=== PATIENT | female | born 1945 | race Caucasian/White ===

== ENCOUNTER → 2016-11-08 | Outpatient (REF) | payer MEDICARE, OTHER ==
[~2016-11-08] MED LIST: CITA40TA4 PO; FERR325T3 PO; FLON1SPR; GLUC1CAP9 PO; LOSA50TA20 PO; NEXI40CA PO; PRAV20TA2 PO; SYNT112T2 PO; [UNRECOGNIZED DRUG - CODE] PO
[2016-11-08 13:56] LABS: PERCENT SATURATION 12.4 % (13.2-37.4)
== END ==
LOC: M LAB REF 13:05
PROVIDERS: ATTEND Internal Medicine Medical Oncology
DX: D50.9 Iron deficiency anemia, unspecified (principal)

== ENCOUNTER → 2017-01-04 | Outpatient (CLI) | payer MEDICARE, OTHER ==
[~2017-01-04] VITALS: Ht 160 cm; Wt 80.7 kg
[~2017-01-04] MED LIST changes: +NS 1,000 ML IV SCH; +PROPOFOL 200 MG/20 ML VIAL As Ordered ONE
--- NOTE | 2017-01-04 11:17 | ROOR ---
Patient Name: Elle Awan Procedure Date: 01/04/2017 11:01 AM Date of : 1945 Age: 71 Room: [facility] Gender: Female Note Status: Finalized Procedure: Upper GI endoscopy Indications: Dysphagia, Heartburn Providers: Nirav Villasenor MD Referring MD: EVANGELINA SAAB MD Requesting Provider: Medicines: Monitored Anesthesia Care Complications: No immediate complications. Procedure: Pre-Anesthesia Assessment: - The heart rate, respiratory rate, oxygen saturations, blood pressure, adequacy of pulmonary ventilation, and response to care were monitored throughout the procedure. The Endoscope was introduced through the mouth, and advanced to the second part of duodenum. The upper GI endoscopy was accomplished without difficulty. The patient tolerated the procedure well. Findings: The Z-line was regular and was found 40 cm from the incisors. A medium-sized hiatal hernia was present. No other significant abnormalities were identified in a careful examination of the stomach. The exam of the duodenum was otherwise normal. Impression: - Z-line regular, 40 cm from the incisors. - Medium-sized hiatal hernia. - No specimens collected. - The examination was otherwise normal. Recommendation: - Patient has a contact number available for emergencies. The signs and symptoms of potential delayed complications were discussed with the patient. Return to normal activities tomorrow. Written discharge instructions were provided to the patient. - High fiber diet. - Discharge patient to home. - Continue present medications. - Follow an antireflux regimen. - Return to referring physician. - The findings and recommendations were discussed with the patient's family. Nirav Villasenor MD Nirav Villasenor MD 01/04/2017 11:17:05 AM This report has been signed electronically. Number of Addenda: 0 Note Initiated On: 01/04/2017 11:01 AM Estimated Blood Loss: Estimated blood loss: none.
[2017-01-04 11:40] VITALS: BP 152/75
== END | disposition home or self-care (01) ==
LOC: M OPP 10:01
PROVIDERS: ATTEND Internal Medicine Gastroenterology
DX: R13.10 Dysphagia, unspecified (principal); R12 Heartburn; K44.9 Diaphragmatic hernia without obstruction or gangrene; R63.4 Abnormal weight loss; I10 Essential (primary) hypertension; E78.00 Pure hypercholesterolemia, unspecified; E03.9 Hypothyroidism, unspecified; D50.9 Iron deficiency anemia, unspecified; M19.90 Unspecified osteoarthritis, unspecified site; G43.909 Migraine, unspecified, not intractable, without status migrainosus; K74.60 Unspecified cirrhosis of liver; Z78.0 Asymptomatic menopausal state; R06.02 Shortness of breath; K31.819 Angiodysplasia of stomach and duodenum without bleeding; Z88.2 Allergy status to sulfonamides; Z88.8 Allergy status to other drugs, medicaments and biological substances; Z79.899 Other long term (current) drug therapy; F17.210 Nicotine dependence, cigarettes, uncomplicated

== ENCOUNTER → 2017-01-11 | Outpatient (REF) | payer MEDICARE, OTHER ==
[~2017-01-11] MED LIST changes: -NS 1,000 ML IV SCH; -PROPOFOL 200 MG/20 ML VIAL As Ordered ONE
[2017-01-11 13:52] LABS: CARCINOEMBRYONIC ANTIGEN 1.3 NG/ML (<2.5)
== END ==
LOC: M LAB REF 13:09
PROVIDERS: ATTEND Internal Medicine Medical Oncology
DX: D50.9 Iron deficiency anemia, unspecified (principal)

== ENCOUNTER → 2017-01-18 | Outpatient (CLI) | payer MEDICARE, OTHER ==
[~2017-01-18] MED LIST changes: +GASTROGRAFIN SOLUTION 30ML (Q9963) As Ordered ONE; +ISOVUE-370 76% 100ML VIAL (Q9967) As Ordered ONE
--- NOTE | 2017-01-18 17:16 | REP ---
CT study of the abdomen and pelvis without and with IV contrast: With oral contrast. History: Weight loss. Iron deficiency anemia. Comparison CT study January 23, 2016. CT contrast dose: 100 mL of Isovue [address] findings: Preliminary digital customer technical services manager radiograph demonstrates clips in the right upper quadrant. Bowel gas pattern is unremarkable. The lung bases show mild linear fibrosis in the right middle lobe, but are otherwise clear. The liver and spleen are normal in size, homogeneous in texture. No focal liver lesion is seen. No adrenal lesion is observed on either side. Pancreas is unremarkable. Small and large intestinal bowel loops are normal in the abdomen and pelvis. The kidneys enhance symmetrically and are morphologically intact on pre and postcontrast images. No abdominal wall defect is observed. There are degenerative changes in the lumbar spine. No uterine abnormality is seen. Urinary bladder is intact. No bony destructive lesion or abdominal wall defect is seen. There is a small sliding-type hiatal hernia again noted. Impression: Small sliding hiatal hernia, prior cholecystectomy. No acute intra-abdominal or pelvic abnormality. Signed by Shon Treadwell MD 01/18/2017 06:55 P
--- NOTE | 2017-01-18 17:20 | REP ---
CT study of the chest with IV contrast: History: Iron deficiency anemia. Weight loss. CT contrast dose: 100 ml of Isovue 370. Comparison study: April 06, 2013. CT findings: There is no evidence of extrathoracic mass or adenopathy. A small sliding hiatal hernia is seen and there is evidence of reflux with oral barium and air filling and mildly dilating the entire thoracic esophagus. This is similar to prior study. No esophageal mass or mural thickening is seen. Reflux esophagitis cannot be excluded. There is no evidence of hilar or mediastinal mass or adenopathy. No evidence of pulmonary embolism or thoracic aortic dissection or aneurysm. No bony destructive lesion is seen. There are some degenerative changes in the thoracic spine. There is a stable noncalcified 3 mm nodule in the right lower lobe on image 52 of 98, series 304 of today's examination. No other pulmonary nodule or mass lesion is appreciated. Impression: Small hiatal hernia and evidence of significant gastroesophageal reflux filling the esophagus as on the study done in 2012. Reflux esophagitis cannot be excluded. Stable benign nodule right lower lobe. Otherwise no acute disease. Signed by Shon Treadwell MD 01/18/2017 06:55 P
== END ==
LOC: M RAD 14:09
PROVIDERS: ATTEND Internal Medicine Medical Oncology
DX: D50.9 Iron deficiency anemia, unspecified (principal); R63.4 Abnormal weight loss; K44.9 Diaphragmatic hernia without obstruction or gangrene; K21.9 Gastro-esophageal reflux disease without esophagitis; R91.1 Solitary pulmonary nodule
CPT/HCPCS: 71260; 74178; Q9963; Q9967

== ENCOUNTER → 2017-02-08 | Outpatient (CLI) | payer MEDICARE, OTHER ==
[~2017-02-08] MED LIST changes: -GASTROGRAFIN SOLUTION 30ML (Q9963) As Ordered ONE; -ISOVUE-370 76% 100ML VIAL (Q9967) As Ordered ONE
[2017-02-08 13:53] LABS: BASO % 0.8 % (0.0-1.0); EOS # 0.2 K/mm3 (0.0-0.50); EOS % 4.2 % (0.0-3.0); LARGE UNSTAINED CELL # 0.2 K/mm3 (0.0-0.4); LARGE UNSTAINED CELL % 3.8 % (0.0-4.0); LYMPH # 1.3 K/mm3 (1.5-4.5); LYMPH % 23.2 % (24.0-44.0); MEAN CORPUSCULAR HEMOGLOBIN 27.6 pg (27.0-33.0); MEAN CORPUSCULAR HGB CONC 32.6 g/dl (32.0-36.5); MEAN CORPUSCULAR VOLUME 84.7 fl (80.0-96.0); MONO # 0.5 K/mm3 (0.0-0.8); MONO % 8.5 % (0.0-5.0); NEUTROPHILS # 3.4 K/mm3 (1.8-7.7); NEUTROPHILS % 59.4 % (36.0-66.0); PLATELET COUNT, AUTOMATED 310 k/mm3 (150-450); RED CELL DISTRIBUTION WIDTH 14.8 % (11.5-14.5); WHITE BLOOD COUNT 5.8 K/mm3 (4.0-10.0)
[2017-02-08 14:02] LABS: ALBUMIN 3.8 GM/DL (3.2-5.2); ALBUMIN/GLOBULIN RATIO 1.31 (1.00-1.93); ALKALINE PHOSPHATASE 85 U/L (45-117); ALT/SGPT 19 U/L (12-78); ANION GAP 9 MEQ/L (8-16); AST/SGOT 17 U/L (15-37); BILIRUBIN,TOTAL 0.5 MG/DL (0.2-1.0); BLOOD UREA NITROGEN 14 MG/DL (7-18); CALCIUM LEVEL 9.3 MG/DL (8.8-10.2); CARBON DIOXIDE LEVEL 25 MEQ/L (21-32); CHLORIDE LEVEL 105 MEQ/L (98-107); CHOLESTEROL LEVEL 150 MG/DL (<200); CREATININE FOR GFR 0.73 MG/DL (0.55-1.02); FREE T4 1.22 NG/DL (0.76-1.46); GLOMERULAR FILTRATION RATE > 60.0 (>39); GLUCOSE, FASTING 94 MG/DL (83-110); POTASSIUM SERUM 4.5 MEQ/L (3.5-5.1); SODIUM LEVEL 139 MEQ/L (136-145); TOTAL PROTEIN 6.7 GM/DL (6.4-8.2); TRIGLYCERIDES LEVEL 95 MG/DL (<150)
== END ==
LOC: M LAB 12:34
PROVIDERS: ATTEND Emergency Medicine
DX: K31.819 Angiodysplasia of stomach and duodenum without bleeding (principal); I10 Essential (primary) hypertension; E78.2 Mixed hyperlipidemia; E55.9 Vitamin D deficiency, unspecified; R73.01 Impaired fasting glucose; E03.9 Hypothyroidism, unspecified

== ENCOUNTER → 2017-03-11 | Outpatient (REF) | payer MEDICARE, OTHER ==
[2017-03-11 19:56] LABS: PERCENT SATURATION 8.6 % (13.2-37.4)
== END ==
LOC: M LAB REF 13:40
PROVIDERS: ATTEND Internal Medicine Medical Oncology
DX: D50.9 Iron deficiency anemia, unspecified (principal)

== ENCOUNTER → 2017-03-12 | Outpatient (CLI) | payer MEDICARE, OTHER ==
--- NOTE | 2017-03-12 12:36 | REPMRS ---
Patient History The patient states she had a clinical breast exam in January 2017. Patient is postmenopausal and had first child at age 31. Family history of endometrial cancer in mother at age 62. Digital Mammo Screening Bilat: March 12, 2017 - Exam #: [id number] Bilateral CC and MLO view(s) were taken. Technologist: Torie Cruz Technologist Prior study comparison: February 22, 2016, bilateral digital mammo screening bilat performed at [facility]. FINDINGS: There are scattered fibroglandular densities. There has been no change in the appearance of the mammogram from the prior studies. There is a mild amount of residual fibroglandular tissue which is fairly symmetric. There is no interval development of dominant mass, architectural distortion, or clustered microcalcification suggestive of malignancy. ASSESSMENT: BI-RADS/ACR category 1 mammogram. Negative. Recommendation Routine screening mammogram in 1 year (for women over age 40). This mammogram was interpreted with the aid of an FDA-approved computer-aided dectection system. Electronically Signed By: Efrain Morrison MD 03/12/17 [id number]
== END ==
LOC: M RAD 11:06
PROVIDERS: ATTEND Emergency Medicine
DX: Z12.31 Encounter for screening mammogram for malignant neoplasm of breast (principal)

== ENCOUNTER → 2017-06-11 | Outpatient (REF) | payer MEDICARE, OTHER ==
[2017-06-11 13:48] LABS: PERCENT SATURATION 20.7 % (13.2-45.0)
== END ==
LOC: M LAB REF 09:43
PROVIDERS: ATTEND Internal Medicine Medical Oncology
DX: D50.9 Iron deficiency anemia, unspecified (principal)

== ENCOUNTER → 2017-07-08 | Outpatient (CLI) | payer MEDICARE, OTHER ==
[2017-07-08 12:04] LABS: MEAN CORPUSCULAR HEMOGLOBIN 28.7 pg (27.0-33.0); MEAN CORPUSCULAR HGB CONC 32.6 g/dl (32.0-36.5); RED CELL DISTRIBUTION WIDTH 13.4 % (11.5-14.5); WHITE BLOOD COUNT 6.7 10^3/uL (4.0-10.0)
--- NOTE | 2017-07-08 12:10 | REP ---
DUPLEX CAROTID SONOGRAPHY: HISTORY: Followup stenosis. COMPARISON STUDY: November 27, 2016. This was read as showing 50-69% narrowing in the right ICA. FINDINGS: Antegrade flow is observed in both vertebral arteries. Right is larger than the left. RIGHT CAROTID: The right common carotid artery shows mild soft plaquing. There is mixed plaquing in the bulb and proximal ICA on two-dimensional scanning moderate degree on the right side. Stenotic flow velocities are observed in systole and diastole in the right ICA. These have increased since the prior study. VELOCITY CHART RIGHT CAROTID: Right CCA PSV 61 cm/s Right ICA PSV 333 EDV 107 Right ECA 115 Right ICA/CCA ratio, elevated 5.5 IMPRESSION: 80-99% category narrowing in the right ICA by Doppler velocity criteria. Velocities have increased since the prior study. LEFT CAROTID: The left common carotid artery shows mild soft plaquing. There is mixed plaquing in the bulb and proximal ICA on two-dimensional scanning of the left side. Color flow and spectral Doppler interrogation are unremarkable on the left. VELOCITY CHART LEFT CAROTID: Left CCA PSV 85 cm/s Left ICA PSV 86 EDV 26 Left ECA PSV 96 Left ICA/CCA ratio, normal 1.0 IMPRESSION: 16-49% category narrowing in the left ICA by Doppler velocity criteria. Doppler velocities have not increased since prior study. Signed by Shon Treadwell MD 07/08/2017 01:20 P
[2017-07-08 12:34] LABS: ALBUMIN 3.7 GM/DL (3.2-5.2); ALBUMIN/GLOBULIN RATIO 1.32 (1.00-1.93); ALKALINE PHOSPHATASE 98 U/L (45-117); ALT/SGPT 13 U/L (12-78); ANION GAP 7 MEQ/L (8-16); AST/SGOT 14 U/L (15-37); BILIRUBIN,TOTAL 0.4 MG/DL (0.2-1.0); BLOOD UREA NITROGEN 10 MG/DL (7-18); CALCIUM LEVEL 9.2 MG/DL (8.8-10.2); CARBON DIOXIDE LEVEL 26 MEQ/L (21-32); CHLORIDE LEVEL 104 MEQ/L (98-107); CREATININE FOR GFR 0.71 MG/DL (0.55-1.02); GLOMERULAR FILTRATION RATE > 60.0 (>39); GLUCOSE, FASTING 95 MG/DL (83-110); POTASSIUM SERUM 4.3 MEQ/L (3.5-5.1); SODIUM LEVEL 137 MEQ/L (136-145); TOTAL PROTEIN 6.5 GM/DL (6.4-8.2)
[2017-07-08 14:04] LABS: BANDS 1 % (< 11); BASOPHILS 2 % (0-4); EOSINOPHILS 2 % (0-5)
[2017-07-08 14:05] LABS: ANISOCYTOSIS 1+
== END ==
LOC: M RAD 09:28 → M LAB 09:28
PROVIDERS: ATTEND Surgery Vascular Surgery
DX: I65.23 Occlusion and stenosis of bilateral carotid arteries (principal)

== ENCOUNTER → 2017-07-10 | Outpatient (CLI) | payer MEDICARE, OTHER ==
[~2017-07-10] MED LIST changes: +ISOVUE-370 76% 100ML VIAL (Q9967) As Ordered ONE
--- NOTE | 2017-07-10 09:46 | REP ---
CT ANGIO HEAD: HISTORY: Stenosis. CONTRAST: Isovue 370, 75 mL. There is no aneurysm or arteriovenous malformation. Calcified atherosclerotic plaque is present in the cavernous right internal carotid artery. There is no significant stenosis. Major intracranial vessels are patent. The right vertebral artery is dominant. IMPRESSION: 1. There is no aneurysm or arteriovenous malformation. 2. Atherosclerotic disease as described above Signed by Bishnu Green MD 07/10/2017 09:53 A
--- NOTE | 2017-07-10 09:56 | REP ---
CT ANGIO NECK: HISTORY: Stenosis. CONTRAST: Isovue 370, 75 mL. Calcified atherosclerotic plaques are present at the origins of the right external and internal carotid arteries. There is severe stenosis of 85% of the right internal carotid artery at its origin. There is no significant stenosis at the origin of the right external carotid artery. Calcified atherosclerotic plaques are present at the origins of the left external and internal carotid arteries. There is moderate stenosis of 55% of the left internal carotid artery at its origin. There is mild stenosis of 25% of the left external carotid artery at its origin. The vertebral arteries are patent. The right vertebral artery is dominant. A calcified atherosclerotic plaque is present at the origin of the left subclavian artery. There is no significant stenosis. The origins of the remaining vessels are normal in appearance. IMPRESSION: 1. Severe stenosis of 85% of the right internal carotid artery at its origin. 2. Moderate stenosis of 55% of the left internal carotid artery at its origin. Signed by Bishnu Green MD 07/10/2017 10:05 A
== END ==
LOC: M RAD 07:57
PROVIDERS: ATTEND Surgery Vascular Surgery
DX: I65.23 Occlusion and stenosis of bilateral carotid arteries (principal)
CPT/HCPCS: 70496; 70498; Q9967

== ENCOUNTER → 2017-09-03 | Outpatient (CLI) | payer MEDICARE, OTHER ==
[~2017-09-03] MED LIST changes: -ISOVUE-370 76% 100ML VIAL (Q9967) As Ordered ONE
[2017-09-03 12:26] LABS: BASO % 0.6 % (0.0-1.0); EOS # 0.2 10^3/uL (0.0-0.50); EOS % 3.5 % (0.0-3.0); IMMATURE GRANULOCYTE % 0.3 % (0-0); LYMPH # 1.1 10^3/uL (1.5-4.5); LYMPH % 16.8 % (24.0-44.0); MEAN CORPUSCULAR HGB CONC 31.5 g/dl (32.0-36.5); MEAN CORPUSCULAR VOLUME 82.5 fl (80.0-96.0); MONO # 0.8 10^3/uL (0.0-0.8); MONO % 12.4 % (0.0-5.0); NEUTROPHILS # 4.4 10^3/uL (1.8-7.7); NEUTROPHILS % 66.4 % (36.0-66.0); PLATELET COUNT, AUTOMATED 373 10^3/uL (150-450); RED CELL DISTRIBUTION WIDTH 13.8 % (11.5-14.5); WHITE BLOOD COUNT 6.6 10^3/uL (4.0-10.0)
[2017-09-03 13:03] LABS: ALBUMIN 3.8 GM/DL (3.2-5.2); ALBUMIN/GLOBULIN RATIO 1.31 (1.00-1.93); ALKALINE PHOSPHATASE 86 U/L (45-117); ALT/SGPT 13 U/L (12-78); ANION GAP 7 MEQ/L (8-16); AST/SGOT 12 U/L (7-37); BILIRUBIN,TOTAL 0.4 MG/DL (0.2-1.0); BLOOD UREA NITROGEN 12 MG/DL (7-18); CALCIUM LEVEL 8.8 MG/DL (8.8-10.2); CARBON DIOXIDE LEVEL 26 MEQ/L (21-32); CHLORIDE LEVEL 105 MEQ/L (98-107); CHOLESTEROL LEVEL 134 MG/DL (<200); GLOMERULAR FILTRATION RATE > 60.0 (>39); GLUCOSE, FASTING 96 MG/DL (83-110); POTASSIUM SERUM 4.6 MEQ/L (3.5-5.1); SODIUM LEVEL 138 MEQ/L (136-145); TOTAL PROTEIN 6.7 GM/DL (6.4-8.2); TRIGLYCERIDES LEVEL 99 MG/DL (<150)
== END ==
LOC: M LAB 11:45
PROVIDERS: ATTEND Emergency Medicine
DX: K31.819 Angiodysplasia of stomach and duodenum without bleeding (principal); I10 Essential (primary) hypertension; E78.2 Mixed hyperlipidemia; E55.9 Vitamin D deficiency, unspecified; R73.01 Impaired fasting glucose; E03.9 Hypothyroidism, unspecified

== ENCOUNTER → 2017-09-10 | Outpatient (REF) | payer MEDICARE, OTHER ==
[2017-09-10 14:28] LABS: PERCENT SATURATION 6.3 % (13.2-45.0)
== END ==
LOC: M LAB REF 13:43
PROVIDERS: ATTEND Internal Medicine Medical Oncology
DX: D50.9 Iron deficiency anemia, unspecified (principal)

== ENCOUNTER → 2017-10-22 | Outpatient (CLI) | payer MEDICARE, OTHER ==
[2017-10-22 13:58] LABS: MAGNESIUM LEVEL 2.5 MG/DL (1.8-2.4)
[2017-10-22 14:14] LABS: ERYTHROCYTE SEDIMENTATION RATE 12 mm/hr (0-30)
== END ==
LOC: M LAB 12:55
DX: R25.1 Tremor, unspecified (principal); R53.1 Weakness
CPT/HCPCS: 83735

== ENCOUNTER → 2017-12-09 | Outpatient (REF) | payer MEDICARE, OTHER ==
[2017-12-09 14:26] LABS: FERRITIN 16 NG/ML (8-252); IRON (FE) 41 UG/DL (50-170); PERCENT SATURATION 12.8 % (13.2-45.0); TOTAL IRON BINDING CAPACITY 321 UG/DL (250-450)
== END ==
LOC: M LAB REF 13:50
DX: D50.9 Iron deficiency anemia, unspecified (principal)
CPT/HCPCS: 83550

== ENCOUNTER 2018-01-13 10:09 | Day surgery (SDC) | payer MEDICARE, OTHER ==
[2018-01-13] MEDS: NS 1,000 ML IV (10:15)
[2018-01-13] MEDS ORDERED: LIDOCAINE 2% INJ 100 MG/5 ML SDV (FOR ANES.) As Ordered (11:54)
[2018-01-13] MEDS ORDERED: PROPOFOL 200 MG/20 ML VIAL As Ordered (11:54)
== END 2018-01-13 12:30 | disposition home or self-care (01) ==
LOC: M OPP 10:09
DX: K20.9 Esophagitis, unspecified (principal); K44.9 Diaphragmatic hernia without obstruction or gangrene; K31.811 Angiodysplasia of stomach and duodenum with bleeding; R13.10 Dysphagia, unspecified; R12 Heartburn; K74.60 Unspecified cirrhosis of liver; D50.0 Iron deficiency anemia secondary to blood loss (chronic); F41.9 Anxiety disorder, unspecified; F32.9 Major depressive disorder, single episode, unspecified; G43.909 Migraine, unspecified, not intractable, without status migrainosus; E78.00 Pure hypercholesterolemia, unspecified; E03.9 Hypothyroidism, unspecified; Z79.899 Other long term (current) drug therapy; Z88.8 Allergy status to other drugs, medicaments and biological substances; Z78.0 Asymptomatic menopausal state; Z85.40 Personal history of malignant neoplasm of unspecified female genital organ; Z90.49 Acquired absence of other specified parts of digestive tract
CPT/HCPCS: 43235

== ENCOUNTER → 2018-01-22 | Outpatient (REF) | payer MEDICARE, OTHER ==
[2018-01-22 13:43] LABS: FERRITIN 7 NG/ML (8-252); IRON (FE) 23 UG/DL (50-170); PERCENT SATURATION 6.6 % (13.2-45.0); TOTAL IRON BINDING CAPACITY 351 UG/DL (250-450)
== END ==
LOC: M LAB REF 13:03
DX: D50.9 Iron deficiency anemia, unspecified (principal)
CPT/HCPCS: 83550

== ENCOUNTER → 2018-03-20 | Outpatient (CLI) | payer MEDICARE, OTHER ==
[~2018-03-20] MED LIST changes: -CITA40TA4 PO; -FERR325T3 PO; -FLON1SPR; -GLUC1CAP9 PO; +ISOVUE-370 76% 100ML VIAL (Q9967) As Ordered; -LOSA50TA20 PO; -NEXI40CA PO; -PRAV20TA2 PO; -SYNT112T2 PO; -[UNRECOGNIZED DRUG - CODE] PO
== END ==
LOC: M RAD 12:51
DX: I70.213 Atherosclerosis of native arteries of extremities with intermittent claudication, bilateral legs (principal); I70.0 Atherosclerosis of aorta; I70.8 Atherosclerosis of other arteries; K44.9 Diaphragmatic hernia without obstruction or gangrene
CPT/HCPCS: Q9967

== ENCOUNTER → 2018-04-09 | Outpatient (CLI) | payer MEDICARE, OTHER ==
[2018-04-09 11:18] LABS: BASO # 0.1 10^3/uL (0.0-0.2); BASO % 0.9 % (0.0-1.0); EOS # 0.3 10^3/uL (0.0-0.50); EOS % 4.8 % (0.0-3.0); HEMOGLOBIN 12.5 g/dl (12.0-15.5); IMMATURE GRANULOCYTE % 0.2 % (0-3.0); LYMPH # 1.2 10^3/uL (1.5-4.5); MEAN CORPUSCULAR HEMOGLOBIN 26.2 pg (27.0-33.0); MEAN CORPUSCULAR HGB CONC 32.1 g/dl (32.0-36.5); MEAN CORPUSCULAR VOLUME 81.6 fl (80.0-96.0); MONO # 0.8 10^3/uL (0.0-0.8); MONO % 13.6 % (0.0-5.0); NEUTROPHILS # 3.3 10^3/uL (1.8-7.7); NEUTROPHILS % 59.5 % (36.0-66.0); PLATELET COUNT, AUTOMATED 286 10^3/uL (150-450); RED BLOOD COUNT 4.78 10^6/uL (4.00-5.40); WHITE BLOOD COUNT 5.6 10^3/uL (4.0-10.0)
[2018-04-09 12:03] LABS: TOTAL 25(OH) VITAMIN D 32.5 NG/ML (30.0-100.0)
[2018-04-09 12:19] LABS: ALBUMIN 3.6 GM/DL (3.2-5.2); ALBUMIN/GLOBULIN RATIO 1.24 (1.00-1.93); ALKALINE PHOSPHATASE 79 U/L (45-117); ALT/SGPT 15 U/L (12-78); ANION GAP 10 MEQ/L (8-16); AST/SGOT 14 U/L (7-37); BILIRUBIN,TOTAL 0.5 MG/DL (0.2-1.0); BLOOD UREA NITROGEN 11 MG/DL (7-18); CALCIUM LEVEL 8.8 MG/DL (8.8-10.2); CARBON DIOXIDE LEVEL 23 MEQ/L (21-32); CHLORIDE LEVEL 106 MEQ/L (98-107); CHOLESTEROL LEVEL 131 MG/DL (<200); CHOLESTEROL RISK RATIO 2.425 (<5); CREATININE FOR GFR 0.81 MG/DL (0.55-1.30); FREE T4 1.04 NG/DL (0.76-1.46); GLOMERULAR FILTRATION RATE > 60.0 (>39); GLUCOSE, FASTING 90 MG/DL (70-100); HDL CHOLESTEROL 54 MG/DL (>40); LDL CHOLESTEROL 54.4 MG/DL (<100); NON-HDL-C 77 MG/DL; POTASSIUM SERUM 4.4 MEQ/L (3.5-5.1); SODIUM LEVEL 139 MEQ/L (136-145); TOTAL PROTEIN 6.5 GM/DL (6.4-8.2); TRIGLYCERIDES LEVEL 113 MG/DL (<150)
[2018-04-09 16:13] LABS: ESTIMATED AVERAGE GLUCOSE 111 MG/DL (60-110); HEMOGLOBIN A1c 5.5 %
== END ==
LOC: M LAB 10:39
DX: E03.9 Hypothyroidism, unspecified (principal); K31.819 Angiodysplasia of stomach and duodenum without bleeding; E78.2 Mixed hyperlipidemia; E55.9 Vitamin D deficiency, unspecified; I10 Essential (primary) hypertension; Z79.899 Other long term (current) drug therapy
CPT/HCPCS: 84443

== ENCOUNTER 2018-06-12 09:43 | Day surgery (SDC) | payer MEDICARE, OTHER ==
[2018-06-12] MEDS: CEFUROXIME 1MG/0.1ML INTRACAMERAL INJ As Ordered ×2 (06:44)
[2018-06-12] MEDS: DUOVISC (0.50ML VISCOAT/0.55ML PROVISC) OPHTH KIT As Ordered ×2 (06:44)
[~2018-06-12 09:43] MED LIST changes: -ISOVUE-370 76% 100ML VIAL (Q9967) As Ordered; +MIDAZOLAM INJ 2 MG/2 ML VIAL (J2250) As Ordered
[2018-06-12] MEDS: PROPARACAINE 0.5% OPHTH SOL 15ML OS ×2 (10:00)
[2018-06-12] MEDS: OFLOXACIN 0.3 % (OCUFLOX) OPTH SOL 5ML OS ×2 (10:02)
[2018-06-12] MEDS: TROPICAMIDE 1% OPHTH SOLN 2ML OS ×2 (10:03)
[2018-06-12] MEDS: PHENYLEPHRINE 2.5% OPHTH SOL 2ML OS ×2 (10:04)
[2018-06-12] MEDS ORDERED: fentaNYL 100 MCG/2 ML INJECTION (J3010) As Ordered ×2 (10:58)
[2018-06-12] MEDS: LIDOCAINE 0.75%/EPINEPHRINE 0.025% IN BSS 1ML SYR INTRACAMERAL (OR ONLY) As Ordered (11:04)
[2018-06-12] MEDS: BALANCED SALT IRRIGATION SOLUTION 500ML BAG (FOR OR EYE MACHINE) As Ordered ×2 (11:04)
[2018-06-12] MEDS: POVIDONE-IODINE 5% OPHTH PREP SOL 30ML As Ordered ×2 (11:04)
[2018-06-12] MEDS ORDERED: MIDAZOLAM INJ 2 MG/2 ML VIAL (J2250) As Ordered ×2 (11:08)
== END 2018-06-12 11:50 | disposition home or self-care (01) ==
LOC: M SDC 09:43
DX: H25.12 Age-related nuclear cataract, left eye (principal); E03.9 Hypothyroidism, unspecified; K21.9 Gastro-esophageal reflux disease without esophagitis; I10 Essential (primary) hypertension; E78.5 Hyperlipidemia, unspecified; D64.9 Anemia, unspecified; F41.9 Anxiety disorder, unspecified; F32.9 Major depressive disorder, single episode, unspecified; Z79.82 Long term (current) use of aspirin; Z79.899 Other long term (current) drug therapy
CPT/HCPCS: 66984

== ENCOUNTER 2018-06-19 07:14 | Day surgery (SDC) | payer MEDICARE, OTHER ==
[~2018-06-19 07:14] MED LIST changes: +ONDANSETRON 4MG/2ML VIAL (J2405) As Ordered; +fentaNYL 100 MCG/2 ML INJECTION (J3010) As Ordered
[2018-06-19] MEDS: PROPARACAINE 0.5% OPHTH SOL 15ML OD (07:35)
[2018-06-19] MEDS: OFLOXACIN 0.3 % (OCUFLOX) OPTH SOL 5ML OD (07:36)
[2018-06-19] MEDS: TROPICAMIDE 1% OPHTH SOLN 2ML OD (07:38)
[2018-06-19] MEDS: PHENYLEPHRINE 2.5% OPHTH SOL 2ML OD (07:41)
[2018-06-19] MEDS: POVIDONE-IODINE 5% OPHTH PREP SOL 30ML As Ordered (09:11)
[2018-06-19] MEDS: LIDOCAINE 0.75%/EPINEPHRINE 0.025% IN BSS 1ML SYR INTRACAMERAL (OR ONLY) As Ordered (09:14)
[2018-06-19] MEDS: DUOVISC (0.50ML VISCOAT/0.55ML PROVISC) OPHTH KIT As Ordered (09:19)
[2018-06-19] MEDS: CEFUROXIME 1MG/0.1ML INTRACAMERAL INJ As Ordered (09:19)
[2018-06-19] MEDS: BALANCED SALT IRRIGATION SOLUTION 500ML BAG (FOR OR EYE MACHINE) As Ordered (09:19)
== END 2018-06-19 10:06 | disposition home or self-care (01) ==
LOC: M SDC 07:14
DX: H25.11 Age-related nuclear cataract, right eye (principal); I10 Essential (primary) hypertension; E78.5 Hyperlipidemia, unspecified; E03.9 Hypothyroidism, unspecified; M15.0 Primary generalized (osteo)arthritis; R07.9 Chest pain, unspecified; R13.10 Dysphagia, unspecified; K31.811 Angiodysplasia of stomach and duodenum with bleeding; K21.9 Gastro-esophageal reflux disease without esophagitis; R06.02 Shortness of breath; F41.9 Anxiety disorder, unspecified; F32.9 Major depressive disorder, single episode, unspecified; G43.909 Migraine, unspecified, not intractable, without status migrainosus; Z88.1 Allergy status to other antibiotic agents; Z88.2 Allergy status to sulfonamides; Z88.6 Allergy status to analgesic agent; Z79.899 Other long term (current) drug therapy
CPT/HCPCS: 66984

== ENCOUNTER → 2018-07-03 | Outpatient (CLI) | payer MEDICARE, OTHER | LOC: M WHC 14:15 | DX: Z12.31 Encounter for screening mammogram for malignant neoplasm of breast (principal); M81.0 Age-related osteoporosis without current pathological fracture; M85.851 Other specified disorders of bone density and structure, right thigh; M85.852 Other specified disorders of bone density and structure, left thigh; M85.88 Other specified disorders of bone density and structure, other site | CPT/HCPCS: 77067 ==

== ENCOUNTER → 2018-12-05 | Outpatient (CLI) | payer MEDICARE, OTHER ==
[~2018-12-05] MED LIST changes: +ATOR1TAB21 PO; +CENTTAB12 PO; +CITA40TA4 PO; +CLOP75TA2 PO; +D3-5CAP PO; +FERR325T3 PO; +FIOR1CAP PO; +FLON1SPR; +FLUO40CA PO; +GLUC1CAP9 PO; +LOSA50TA88 PO; -MIDAZOLAM INJ 2 MG/2 ML VIAL (J2250) As Ordered; +NEXI40CA PO; +NITR4TASL SL; +ONDA8TAB7 PO; -ONDANSETRON 4MG/2ML VIAL (J2405) As Ordered; +OXYB10TA PO; +PANT40TA3 PO; +PRAV20TA2 PO; +SYNT112T2 PO; +[UNRECOGNIZED DRUG - CODE] PO; -fentaNYL 100 MCG/2 ML INJECTION (J3010) As Ordered
[2018-12-05 11:44] LABS: BASO # 0.1 10^3/uL (0.0-0.2); BASO % 1.2 % (0.0-1.0); EOS # 0.2 10^3/uL (0.0-0.50); EOS % 5.1 % (0.0-3.0); HEMATOCRIT 41.9 % (36.0-47.0); HEMOGLOBIN 13.7 g/dl (12.0-15.5); LYMPH % 22.6 % (24.0-44.0); MEAN CORPUSCULAR HEMOGLOBIN 30.2 pg (27.0-33.0); MEAN CORPUSCULAR HGB CONC 32.7 g/dl (32.0-36.5); MEAN CORPUSCULAR VOLUME 92.3 fl (80.0-96.0); MONO # 0.6 10^3/uL (0.0-0.8); NEUTROPHILS # 2.4 10^3/uL (1.8-7.7); NEUTROPHILS % 56.9 % (36.0-66.0); PLATELET COUNT, AUTOMATED 284 10^3/uL (150-450); RED BLOOD COUNT 4.54 10^6/uL (4.00-5.40); WHITE BLOOD COUNT 4.3 10^3/uL (4.0-10.0)
[2018-12-05 12:29] LABS: ALBUMIN 3.8 GM/DL (3.2-5.2); ALT/SGPT 16 U/L (12-78); BILIRUBIN,TOTAL 0.5 MG/DL (0.2-1.0); BLOOD UREA NITROGEN 11 MG/DL (7-18); CALCIUM LEVEL 8.8 MG/DL (8.8-10.2); CARBON DIOXIDE LEVEL 24 MEQ/L (21-32); CHLORIDE LEVEL 107 MEQ/L (98-107); CHOLESTEROL LEVEL 136 MG/DL (<200); CHOLESTEROL RISK RATIO 2.229 (<5); CREATININE FOR GFR 0.72 MG/DL (0.55-1.30); FREE T4 1.15 NG/DL (0.76-1.46); GLOMERULAR FILTRATION RATE > 60.0 (>39); GLUCOSE, FASTING 83 MG/DL (70-100); HDL CHOLESTEROL 61 MG/DL (>40); LDL CHOLESTEROL 58 MG/DL (<100); NON-HDL-C 75 MG/DL; POTASSIUM SERUM 4.6 MEQ/L (3.5-5.1); SODIUM LEVEL 140 MEQ/L (136-145); TOTAL PROTEIN 6.7 GM/DL (6.4-8.2); TRIGLYCERIDES LEVEL 85 MG/DL (<150)
== END ==
LOC: M LAB 10:25
PROVIDERS: ATTEND Emergency Medicine
DX: K31.819 Angiodysplasia of stomach and duodenum without bleeding (principal); I10 Essential (primary) hypertension; E78.2 Mixed hyperlipidemia; E55.9 Vitamin D deficiency, unspecified; R73.01 Impaired fasting glucose; E03.9 Hypothyroidism, unspecified

== ENCOUNTER → 2018-12-09 | Outpatient (CLI) | payer MEDICARE, OTHER ==
[2018-12-09 16:20] LABS: FREE T4 1.14 NG/DL (0.76-1.46); THYROID STIMULATING HORMONE 2.23 uIU/ML (0.358-3.740)
== END ==
LOC: M LAB 15:04
PROVIDERS: ATTEND Physician Assistant
DX: E03.9 Hypothyroidism, unspecified (principal)

== ENCOUNTER → 2019-08-21 | Outpatient (REF) | payer MEDICARE, OTHER ==
[~2019-08-21] MED LIST changes: +CALCD50TA PO; +GLUC500C37 PO; +MULTCAP PO; -OXYB10TA PO; +OXYB10TA2 PO; +PLAV1TAB2 PO
== END ==
LOC: M LAB REF 16:13
PROVIDERS: ATTEND Registered Nurse
DX: R30.0 Dysuria (principal)

== ENCOUNTER → 2020-01-26 | Outpatient (CLI) | payer MEDICARE, OTHER ==
[~2020-01-26] MED LIST changes: +ONDA8TAB10 PO; -ONDA8TAB7 PO; -OXYB10TA2 PO; +OXYB10TA23 PO
[2020-01-26 11:48] LABS: BASO # 0.1 10^3/uL (0.0-0.2); BASO % 1.2 % (0.0-1.0); EOS # 0.3 10^3/uL (0.0-0.5); EOS % 5.3 % (0.0-3.0); HEMATOCRIT 42.5 % (36.0-47.0); HEMOGLOBIN 14.1 g/dl (12.0-15.5); LYMPH # 1.3 10^3/uL (1.5-5.0); LYMPH % 23.2 % (24.0-44.0); MEAN CORPUSCULAR HEMOGLOBIN 30.3 pg (27.0-33.0); MEAN CORPUSCULAR HGB CONC 33.2 g/dl (32.0-36.5); MEAN CORPUSCULAR VOLUME 91.4 fl (80.0-96.0); MONO # 0.7 10^3/uL (0.0-0.8); MONO % 11.5 % (0.0-5.0); NEUTROPHILS # 3.3 10^3/uL (1.5-8.5); NEUTROPHILS % 58.4 % (36.0-66.0); PLATELET COUNT, AUTOMATED 287 10^3/uL (150-450); RED BLOOD COUNT 4.65 10^6/uL (4.00-5.40); WHITE BLOOD COUNT 5.6 10^3/uL (4.0-10.0)
[2020-01-26 12:20] LABS: ALBUMIN 3.8 GM/DL (3.2-5.2); ALT/SGPT 21 U/L (12-78); BILIRUBIN,TOTAL 0.7 MG/DL (0.2-1.0); BLOOD UREA NITROGEN 8 MG/DL (7-18); CALCIUM LEVEL 9.4 MG/DL (8.8-10.2); CARBON DIOXIDE LEVEL 23 MEQ/L (21-32); CHLORIDE LEVEL 108 MEQ/L (98-107); CREATININE FOR GFR 0.69 MG/DL (0.55-1.30); FERRITIN 89 NG/ML (8-252); GLOMERULAR FILTRATION RATE > 60.0 (>39); GLUCOSE, FASTING 106 MG/DL (70-100); IRON (FE) 97 UG/DL (50-170); PERCENT SATURATION 36.1 % (13.2-45.0); POTASSIUM SERUM 4.1 MEQ/L (3.5-5.1); SODIUM LEVEL 139 MEQ/L (136-145); TOTAL IRON BINDING CAPACITY 269 UG/DL (250-450); TOTAL PROTEIN 6.7 GM/DL (6.4-8.2)
== END ==
LOC: M LAB 10:57
PROVIDERS: ATTEND Internal Medicine Hematology
DX: E61.1 Iron deficiency (principal)

== ENCOUNTER → 2020-02-11 | Outpatient (REF) | payer MEDICARE, OTHER ==
[2020-02-11 19:04] LABS: FOLATE 21.6 NG/ML
== END ==
LOC: M LAB REF 17:00
PROVIDERS: ATTEND Registered Nurse
DX: R53.1 Weakness (principal); R53.83 Other fatigue

== ENCOUNTER 2020-03-12 10:22 | Emergency (ER) | payer MEDICARE, OTHER ==
[~2020-03-12] VITALS: Ht 160 cm; Wt 75.5 kg
[2020-03-12] MEDS ORDERED: OYST500T11 PO (10:37)
[2020-03-12] MEDS ORDERED: CENT1TAB PO (10:37)
[2020-03-12 11:58] LABS: BASO # 0.1 10^3/uL (0.0-0.2); EOS # 0.3 10^3/uL (0.0-0.5); HEMATOCRIT 37.9 % (36.0-47.0); HEMOGLOBIN 12.8 g/dl (12.0-15.5); LYMPH # 0.9 10^3/uL (1.5-5.0); MEAN CORPUSCULAR HEMOGLOBIN 30.2 pg (27.0-33.0); MEAN CORPUSCULAR HGB CONC 33.8 g/dl (32.0-36.5); MEAN CORPUSCULAR VOLUME 89.4 fl (80.0-96.0); MONO # 0.7 10^3/uL (0.0-0.8); MONO % 13.8 % (0.0-5.0); NEUTROPHILS # 3.2 10^3/uL (1.5-8.5); NEUTROPHILS % 61.8 % (36.0-66.0); PLATELET COUNT, AUTOMATED 284 10^3/uL (150-450); RED BLOOD COUNT 4.24 10^6/uL (4.00-5.40); WHITE BLOOD COUNT 5.2 10^3/uL (4.0-10.0)
[2020-03-12 12:09] LABS: INR 1.07; PROTHROMBIN TIME 13.6 SECONDS (11.8-14.0)
[2020-03-12 12:10] LABS: PARTIAL THROMBOPLASTIN TIME 33.2 SECONDS (25.0-38.4)
[2020-03-12 12:34] LABS: ALBUMIN 3.7 GM/DL (3.2-5.2); ALT/SGPT 18 U/L (12-78); BILIRUBIN,DIRECT 0.2 MG/DL (0.0-0.2); BILIRUBIN,TOTAL 0.6 MG/DL (0.2-1.0); CK-MB VALUE MASS < 1.0 NG/ML (<3.6); CPK CREATINE PHOSPHOKINASE 56 U/L (26-192); FREE T4 1.33 NG/DL (0.76-1.46); MAGNESIUM LEVEL 2.2 MG/DL (1.8-2.4); MB/CK RELATIVE INDEX 1.79 (< OR =4); TOTAL PROTEIN 6.4 GM/DL (6.4-8.2); TROPONIN I < 0.02 NG/ML (< 0.10)
[2020-03-12] MEDS ORDERED: ISOVUE-370 76% 100ML VIAL As Ordered ONE (12:50)
--- NOTE | 2020-03-12 14:10 | REP ---
CT abdomen/pelvis: 03/12/2020. Indication: Nausea. Technique: Axial images of the abdomen and pelvis were performed following IV iodinated contrast administration with sagittal and coronal reconstructions provided. Comparison: 01/18/2017. Findings: There is no evidence of bowel obstruction, free intraperitoneal air or adenopathy. The bowel gas pattern is unremarkable. Diverticulosis is noted without evidence of diverticulitis. The visualized lungs are clear. The spleen, liver and kidneys are unremarkable. The patient is status post cholecystectomy. Small sliding-type hiatal hernia is present. Impression: No acute abdominal or pelvic pathology. Small sliding-type hiatal hernia, prior cholecystectomy and diverticulosis. Electronically Signed by Jae Colindres DO 03/12/2020 02:02 P
--- NOTE | 2020-03-12 15:31 | REP ---
Single view chest: 03/12/2020. Indication: Syncope. Comparison: 01/18/2017. Findings: The lungs are clear. There is no pleural effusion or pneumothorax. The cardiac silhouette is normal in size. Thoracolumbar scoliosis is noted. Impression: Clear lungs. Electronically Signed by Jae Colindres DO 03/12/2020 03:22 P
[2020-03-12 15:45] VITALS: BP 184/86
--- NOTE | 2020-03-13 16:01 | ECGEPIP ---
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
== END 2020-03-12 16:13 | disposition home or self-care (01) ==
LOC: M ED 10:22
DX: R53.1 Weakness (principal); K44.9 Diaphragmatic hernia without obstruction or gangrene; R00.2 Palpitations; I44.4 Left anterior fascicular block; I10 Essential (primary) hypertension; E03.9 Hypothyroidism, unspecified; K21.9 Gastro-esophageal reflux disease without esophagitis; F32.9 Major depressive disorder, single episode, unspecified; Z79.899 Other long term (current) drug therapy; Z88.6 Allergy status to analgesic agent; Z88.2 Allergy status to sulfonamides; Z88.8 Allergy status to other drugs, medicaments and biological substances
CPT/HCPCS: 71045; 74177; 80047; 80076; 81001; 82550; 82553; 83735; 84439; 84443; 84484; 85025; 85610; 85730; 86850; 86900; 86901; 87486; 87581; 87633; 87798; 93005; 93041; 94760; 99285; Q9967

== ENCOUNTER → 2020-03-31 | Outpatient (CLI) | payer MEDICARE, OTHER ==
[~2020-03-31] MED LIST changes: +CENT1TAB PO; +OYST500T11 PO
== END ==
LOC: M LABSMTC 10:37
PROVIDERS: ATTEND Anesthesiology
DX: Z03.818 Encounter for observation for suspected exposure to other biological agents ruled out (principal); Z11.59 Encounter for screening for other viral diseases
CPT/HCPCS: C9803; U0003

== ENCOUNTER 2020-04-05 10:16 | Day surgery (SDC) | payer MEDICARE, OTHER ==
[~2020-04-05] VITALS: Ht 160 cm; Wt 73.9 kg
[~2020-04-05 10:16] MED LIST changes: +NS 1,000 ML IV ONE; +PANT40TA29 PO; -PANT40TA3 PO
[2020-04-05] MEDS ORDERED: propofoL 200 MG/20 ML VIAL As Ordered ONE (11:34)
[2020-04-05] MEDS ORDERED: LIDOCAINE 2% 100MG/5ML SDV (FOR ANES.) As Ordered ONE (11:35)
[2020-04-05] MEDS ORDERED: fentaNYL 100 MCG/2 ML INJECTION (J3010) As Ordered ONE (11:55)
--- NOTE | 2020-04-05 12:35 | ROOR ---
Patient Name: Elle Awan Procedure Date: 04/05/2020 12:16 PM Date of : 1945 Age: 74 Room: [facility] Gender: Female Note Status: Finalized Procedure: Upper Endoscopy + Biopsies Indications: Dysphagia, Heartburn Providers: Nirav Villasenor MD Referring MD: Nati MERLOS MD Requesting Provider: Medicines: Monitored Anesthesia Care Complications: No immediate complications. Procedure: Pre-Anesthesia Assessment: - The heart rate, respiratory rate, oxygen saturations, blood pressure, adequacy of pulmonary ventilation, and response to care were monitored throughout the procedure. The Endoscope was introduced through the mouth, and advanced to the second part of duodenum. The upper GI endoscopy was accomplished without difficulty. The patient tolerated the procedure well. Findings: The Z-line was regular and was found 30 cm from the incisors. Multiple biopsies were obtained with cold forceps for evaluation to rule out Mancilla's Esophagus randomly at the gastroesophageal junction. A medium-sized hiatal hernia was present. Localized severe inflammation characterized by adherent blood, congestion (edema), erosions, erythema, friability and aphthous ulcerations was found in the gastric antrum. Biopsies were taken with a cold forceps for Helicobacter pylori testing. The exam of the duodenum was otherwise normal. Impression: - Z-line regular, 30 cm from the incisors. - Medium-sized hiatal hernia. - Mucosal changes suspicious for gastritis. Biopsied. - Multiple biopsies were obtained at the gastroesophageal junction. - The examination was otherwise normal. Recommendation: - Patient has a contact number available for emergencies. The signs and symptoms of potential delayed complications were discussed with the patient. Return to normal activities tomorrow. Written discharge instructions were provided to the patient. - Discharge patient to home. - Follow an antireflux regimen. - Use Prilosec (omeprazole) 40 mg PO BID. - Await pathology results. - Telephone GI clinic for pathology results in 1 week. - Return to referring physician. - The findings and recommendations were discussed with the patient. Nirav Villasenor MD Nirav Villasenor MD 04/05/2020 12:35:20 PM Electronically signed by Nirav Villasenor MD Number of Addenda: 0 Note Initiated On: 04/05/2020 12:16 PM Estimated Blood Loss: Estimated blood loss: none.
--- NOTE | 2020-04-05 12:51 | ROOR ---
Patient Name: Elle Awan Procedure Date: 04/05/2020 12:17 PM Date of : 1945 Age: 74 Room: [facility] Gender: Female Note Status: Finalized Procedure: Total Colonoscopy to Cecum Indications: Change in bowel habits, Constipation, Chronic idiopathic constipation Providers: Nirav Villasenor MD Referring MD: Nati MERLOS MD Requesting Provider: Medicines: Monitored Anesthesia Care Complications: No immediate complications. Procedure: Pre-Anesthesia Assessment: - The heart rate, respiratory rate, oxygen saturations, blood pressure, adequacy of pulmonary ventilation, and response to care were monitored throughout the procedure. The Colonoscope was introduced through the anus and advanced to the cecum, identified by appendiceal orifice and ileocecal valve. The colonoscopy was performed without difficulty. The patient tolerated the procedure well. The quality of the bowel preparation was excellent. Findings: The perianal and digital rectal examinations were normal. Non-bleeding internal hemorrhoids were found during retroflexion. The hemorrhoids were medium-sized and Grade I (internal hemorrhoids that do not prolapse). Multiple small and large-mouthed diverticula were found in the recto-sigmoid colon, sigmoid colon and descending colon. The exam was otherwise without abnormality on direct and retroflexion views. Impression: - Non-bleeding internal hemorrhoids. - Diverticulosis in the recto-sigmoid colon, in the sigmoid colon and in the descending colon. - The examination was otherwise normal on direct and retroflexion views. - No specimens collected. - The exam was otherwise normal to the cecum. Recommendation: - Patient has a contact number available for emergencies. The signs and symptoms of potential delayed complications were discussed with the patient. Return to normal activities tomorrow. Written discharge instructions were provided to the patient. - High fiber diet. - Discharge patient to home. - Continue present medications. - Repeat colonoscopy for symptoms only. - Return to referring physician. - The findings and recommendations were discussed with the patient. Nirav Villasenor MD Nirav Villasenor MD 04/05/2020 12:50:52 PM Electronically signed by Nirav Villasenor MD Number of Addenda: 0 Note Initiated On: 04/05/2020 12:17 PM Estimated Blood Loss: Estimated blood loss: none.
[2020-04-05 13:25] VITALS: BP 184/75
[2020-04-20] MEDS ORDERED: FLUO10CA16 PO (09:57)
[2020-04-20] MEDS ORDERED: FLUO20CA22 PO (09:57)
== END 2020-04-05 13:32 | disposition home or self-care (01) ==
LOC: M OPP 10:16
PROVIDERS: ATTEND Internal Medicine Gastroenterology
DX: K57.30 Diverticulosis of large intestine without perforation or abscess without bleeding (principal); K64.0 First degree hemorrhoids; K59.00 Constipation, unspecified; K74.60 Unspecified cirrhosis of liver; D50.0 Iron deficiency anemia secondary to blood loss (chronic); R13.10 Dysphagia, unspecified; K29.70 Gastritis, unspecified, without bleeding; K44.9 Diaphragmatic hernia without obstruction or gangrene; R12 Heartburn; Z79.899 Other long term (current) drug therapy; Z88.2 Allergy status to sulfonamides; Z88.6 Allergy status to analgesic agent
CPT/HCPCS: 43239; 45378; 88305; J3010

== ENCOUNTER → 2020-04-15 | Outpatient (REF) | payer MEDICARE, OTHER ==
[~2020-04-15] MED LIST changes: +FLUO10CA16 PO; +FLUO20CA22 PO; -NS 1,000 ML IV ONE
== END ==
LOC: M LAB REF 12:15
PROVIDERS: ATTEND Internal Medicine
DX: D50.0 Iron deficiency anemia secondary to blood loss (chronic) (principal)

== ENCOUNTER → 2020-12-19 | Outpatient (REF) | payer MEDICARE, OTHER ==
[2020-12-19 17:18] LABS: PERCENT SATURATION 32.5 % (13.2-45.0)
== END ==
LOC: M LAB REF 16:13
PROVIDERS: ATTEND Internal Medicine
DX: D50.0 Iron deficiency anemia secondary to blood loss (chronic) (principal)

== ENCOUNTER → 2020-12-20 | Outpatient (CLI) | payer MEDICARE, OTHER ==
--- NOTE | 2020-12-20 11:49 | REP ---
INDICATION: DYSPNEA. COMPARISON: PA and lateral chest dated 09/04/2012 . TECHNIQUE: Upright PA and lateral chest. FINDINGS: The lung mari are clear. Cardiac size is normal. The zackery, mediastinum and skeletal structures are unremarkable. IMPRESSION: Essentially negative PA and lateral chest There is no interval change. <Electronically signed by Efrain Gregory > 12/20/20 1124
== END ==
LOC: M WUC 11:03
PROVIDERS: ATTEND Internal Medicine
DX: R06.00 Dyspnea, unspecified (principal)

== ENCOUNTER → 2021-01-13 | Outpatient (CLI) | payer MEDICARE, OTHER | LOC: M LABSMTC 12:13 | PROVIDERS: ATTEND Anesthesiology | DX: Z01.812 Encounter for preprocedural laboratory examination (principal); Z20.822 Contact with and (suspected) exposure to COVID-19 ==

== ENCOUNTER 2021-01-18 11:05 | Day surgery (SDC) | payer MEDICARE, OTHER ==
[~2021-01-18] VITALS: Ht 162.6 cm; Wt 78.5 kg
[~2021-01-18 11:05] MED LIST changes: +NS 1,000 ML IV ONE
[2021-01-18] MEDS ORDERED: fentaNYL 100 MCG/2 ML INJECTION (J3010) As Ordered ONE (11:24)
[2021-01-18] MEDS ORDERED: propofoL 200 MG/20 ML VIAL As Ordered ONE (11:25)
[2021-01-18] MEDS ORDERED: LIDOCAINE 2% 100MG/5ML SDV (FOR ANES.) As Ordered ONE (11:25)
--- NOTE | 2021-01-18 12:15 | ROOR ---
Patient Name: Elle Awan Procedure Date: 01/18/2021 11:47 AM Date of : 1945 Age: 75 Room: [facility] Gender: Female Note Status: Finalized Procedure: Egd + Apc Indications: Unexplained iron deficiency anemia Providers: Nirav Villasenor MD Referring MD: Nati MERLOS MD Requesting Provider: Medicines: Monitored Anesthesia Care Complications: No immediate complications. Procedure: Pre-Anesthesia Assessment: - The heart rate, respiratory rate, oxygen saturations, blood pressure, adequacy of pulmonary ventilation, and response to care were monitored throughout the procedure. The Endoscope was introduced through the mouth, and advanced to the second part of duodenum. The upper GI endoscopy was accomplished without difficulty. The patient tolerated the procedure well. Findings: The Z-line was regular and was found 35 cm from the incisors. 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 Coagulation for hemostasis using argon plasma at 0.8 liters/minute and 35 hall was successful. The exam of the duodenum was otherwise normal. Impression: - Z-line regular, 35 cm from the incisors. - Gastric antral vascular ectasia with bleeding. Treated with argon plasma coagulation (APC). - No specimens collected. - The examination was otherwise normal. Recommendation: - Patient has a contact number available for emergencies. The signs and symptoms of potential delayed complications were discussed with the patient. Return to normal activities tomorrow. Written discharge instructions were provided to the patient. - High fiber diet. - Discharge patient to home. - Continue present medications. - Repeat upper endoscopy in 1 month for retreatment. - Return to referring physician. - The findings and recommendations were discussed with the patient. Procedure Code(s): --- Professional --- 97794, Esophagogastroduodenoscopy, flexible, transoral; with control of bleeding, any method Diagnosis Code(s): --- Professional --- K31.811, Angiodysplasia of stomach and duodenum with bleeding D50.9, Iron deficiency anemia, unspecified CPT copyright 2019 [employer]. All rights reserved. The codes documented in this report are preliminary and upon clinical support manager review may be revised to meet current compliance requirements. Nirav Villasenor MD Nirav Villasenor MD 01/18/2021 12:14:49 PM Electronically signed by Nirav Villasenor MD Number of Addenda: 0 Note Initiated On: 01/18/2021 11:47 AM Estimated Blood Loss: Estimated blood loss: none.
[2021-01-18 12:35] VITALS: BP 177/76
== END 2021-01-18 12:49 | disposition home or self-care (01) ==
LOC: M OPP 11:05
PROVIDERS: ATTEND Internal Medicine Gastroenterology
DX: K31.811 Angiodysplasia of stomach and duodenum with bleeding (principal); D50.9 Iron deficiency anemia, unspecified; Z79.899 Other long term (current) drug therapy; Z88.2 Allergy status to sulfonamides; Z88.8 Allergy status to other drugs, medicaments and biological substances
CPT/HCPCS: 43255; J3010

== ENCOUNTER 2021-01-23 09:36 | Emergency (ER) | payer MEDICARE, OTHER ==
[~2021-01-23] VITALS: Ht 160 cm; Wt 79.6 kg
[~2021-01-23 09:36] MED LIST changes: -NS 1,000 ML IV ONE
[2021-01-23 10:28] LABS: BASO # 0.1 10^3/uL (0.0-0.2); BASO % 0.9 % (0.0-1.0); EOS # 0.2 10^3/uL (0.0-0.5); EOS % 2.3 % (0.0-3.0); HEMATOCRIT 44.8 % (36.0-47.0); HEMOGLOBIN 14.4 g/dl (12.0-15.5); LYMPH # 0.9 10^3/uL (1.5-5.0); LYMPH % 10.7 % (24.0-44.0); MEAN CORPUSCULAR HEMOGLOBIN 30.7 pg (27.0-33.0); MEAN CORPUSCULAR HGB CONC 32.1 g/dl (32.0-36.5); MEAN CORPUSCULAR VOLUME 95.5 fl (80.0-96.0); MONO # 0.7 10^3/uL (0.0-0.8); MONO % 8.1 % (2.0-8.0); NEUTROPHILS # 6.3 10^3/uL (1.5-8.5); NEUTROPHILS % 77.5 % (36.0-66.0); PLATELET COUNT, AUTOMATED 293 10^3/uL (150-450); RED BLOOD COUNT 4.69 10^6/uL (4.00-5.40); WHITE BLOOD COUNT 8.1 10^3/uL (4.0-10.0)
[2021-01-23 10:38] LABS: INR 1.03; PROTHROMBIN TIME 13.7 SECONDS (12.5-14.3)
[2021-01-23 10:39] LABS: PARTIAL THROMBOPLASTIN TIME 25.1 SECONDS (24.2-38.5)
[2021-01-23 10:51] LABS: ERYTHROCYTE SEDIMENTATION RATE 4 mm/hr (0-30)
--- NOTE | 2021-01-23 11:10 | REP ---
INDICATION: swelling/pain. COMPARISON: None. TECHNIQUE: Multiple ultrasonographic images of the deep venous structures of the left thigh were obtained from the common femoral vein to the popliteal vein along with Doppler interrogation and color flow Doppler images. FINDINGS: There is abnormal echogenic material seen within the left popliteal vein. Coaptation is unobtainable in that vessel. Doppler interrogation shows a decreased response to respiratory variability and augmentation. The color flow images show decreased color signal in the popliteal vein. IMPRESSION: Evidence of popliteal vein thrombosis in the left leg. <Electronically signed by Basilio Andrews > 01/23/21 1104
[2021-01-23 11:23] LABS: ALBUMIN 3.7 GM/DL (3.2-5.2); ALT/SGPT 24 U/L (12-78); BILIRUBIN,DIRECT 0.1 MG/DL (0.0-0.2); BILIRUBIN,TOTAL 0.6 MG/DL (0.2-1.0); C REACTIVE PROTEIN QUANTITATIV < 0.30 MG/DL (0.00-0.30); TOTAL PROTEIN 6.6 GM/DL (6.4-8.2)
[2021-01-23] MEDS ORDERED: APIXABAN 5 MG TAB (ELIQUIS) PO ONE (11:35)
[2021-01-23] MEDS ORDERED: ELIQ5TAB PO (11:38)
[2021-01-23 12:07] VITALS: BP 155/72
== END 2021-01-23 12:12 | disposition home or self-care (01) ==
LOC: M ED 09:36
DX: I82.432 Acute embolism and thrombosis of left popliteal vein (principal); R06.02 Shortness of breath; I10 Essential (primary) hypertension; E78.5 Hyperlipidemia, unspecified; E03.9 Hypothyroidism, unspecified; F41.9 Anxiety disorder, unspecified; F32.9 Major depressive disorder, single episode, unspecified; D64.9 Anemia, unspecified; Z79.899 Other long term (current) drug therapy; Z88.6 Allergy status to analgesic agent; Z88.2 Allergy status to sulfonamides; Z88.8 Allergy status to other drugs, medicaments and biological substances

== ENCOUNTER → 2021-03-24 | Outpatient (CLI) | payer MEDICARE, OTHER ==
[~2021-03-24] MED LIST changes: +COVI100V IM; +ELIQ5TAB PO; +OMEP-221 PO; +SUCR1TAB56 PO
--- NOTE | 2021-03-24 14:34 | REP ---
INDICATION: LT LEG PAIN SWELLING H/O DVT ? NEW DVT. COMPARISON: None. TECHNIQUE: Multiple ultrasonographic images of the deep venous structures of the left lower extremity were obtained from the inguinal ligament to the ankle. Venous compression techniques, color doppler imaging, and augmentation techniques were also obtained where appropriate. As per the ACR guidelines the anterior tibial vein can not be effectively evaluated. Only compression techniques in the calf on the peroneal and posterior tibial veins was attempted/performed. FINDINGS: There is no abnormal echogenic material seen within any of the visualized deep venous structures that would suggest acute thrombosis. Coaptation is unremarkable throughout. Doppler interrogation shows an expected response to respiratory variability and augmentation in the thigh. Compression techniques in the calf showed no abnormality. The color flow images show what appears to be a normal vascular pattern throughout the thigh. Note is made of a 4.5 x 0.9 x 0.8 cm sized complex appearing structure in the medial posterior popliteal fossa. IMPRESSION: There is no ultrasonographic evidence of deep venous thrombosis involving any of the visualized deep venous structures of the lower extremity as described above. Suspected Patel's cyst as described above. This was not present or not imaged on the prior exam. Follow-up is suggested. Consider MRI. <Electronically signed by Basilio Andrews > 03/24/21 [id number]
== END ==
LOC: M RAD 13:12
PROVIDERS: ATTEND Internal Medicine
DX: M79.662 Pain in left lower leg (principal); Z86.718 Personal history of other venous thrombosis and embolism

== ENCOUNTER → 2021-05-15 | Outpatient (CLI) | payer MEDICARE, OTHER ==
[~2021-05-15] MED LIST changes: +FLUT11IN INH; +MYRB25TA PO; +NITR0.4S14 PO; +PROA1AER2 INH; +REST0.05 OU
== END ==
LOC: M LABSMTC 08:59
PROVIDERS: ATTEND Anesthesiology
DX: Z01.812 Encounter for preprocedural laboratory examination (principal)

== ENCOUNTER → 2021-05-18 | Outpatient (CLI) | payer MEDICARE, OTHER ==
[2021-05-18 12:30] LABS: BASO # 0.1 10^3/uL (0.0-0.2); BASO % 1.2 % (0.0-1.0); EOS # 0.2 10^3/uL (0.0-0.5); EOS % 2.8 % (0.0-3.0); HEMATOCRIT 41.8 % (36.0-47.0); HEMOGLOBIN 13.4 g/dl (12.0-15.5); LYMPH # 1.4 10^3/uL (1.5-5.0); MEAN CORPUSCULAR HEMOGLOBIN 29.1 pg (27.0-33.0); MEAN CORPUSCULAR HGB CONC 32.1 g/dl (32.0-36.5); MEAN CORPUSCULAR VOLUME 90.7 fl (80.0-96.0); MONO # 0.9 10^3/uL (0.0-0.8); MONO % 12.6 % (2.0-8.0); NEUTROPHILS # 4.3 10^3/uL (1.5-8.5); NEUTROPHILS % 63.3 % (36.0-66.0); PLATELET COUNT, AUTOMATED 328 10^3/uL (150-450); RED BLOOD COUNT 4.61 10^6/uL (4.00-5.40); WHITE BLOOD COUNT 6.8 10^3/uL (4.0-10.0)
[2021-05-18 13:11] LABS: ALBUMIN 3.9 GM/DL (3.2-5.2); ALT/SGPT 20 U/L (12-78); BILIRUBIN,TOTAL 0.6 MG/DL (0.2-1.0); BLOOD UREA NITROGEN 8 MG/DL (7-18); CALCIUM LEVEL 8.8 MG/DL (8.8-10.2); CARBON DIOXIDE LEVEL 25 MEQ/L (21-32); CHLORIDE LEVEL 108 MEQ/L (98-107); CREATININE FOR GFR 0.77 MG/DL (0.55-1.30); GLOMERULAR FILTRATION RATE > 60.0 (>39); GLUCOSE, FASTING 104 MG/DL (70-100); NT-PRO BNP 1087 PG/ML (<450); POTASSIUM SERUM 4.6 MEQ/L (3.5-5.1); SODIUM LEVEL 139 MEQ/L (136-145); TOTAL PROTEIN 6.8 GM/DL (6.4-8.2)
== END ==
LOC: M LAB 11:45
PROVIDERS: ATTEND Radiology Pediatric Radiology
DX: I11.9 Hypertensive heart disease without heart failure (principal); R06.02 Shortness of breath; I27.81 Cor pulmonale (chronic); E03.9 Hypothyroidism, unspecified; I34.0 Nonrheumatic mitral (valve) insufficiency

== ENCOUNTER 2021-05-19 10:36 | Day surgery (SDC) | payer MEDICARE, OTHER ==
[~2021-05-19] VITALS: Ht 160 cm; Wt 77.6 kg
[~2021-05-19 10:36] MED LIST changes: +NS 1,000 ML IV ONE
[2021-05-19] MEDS ORDERED: propofoL 500 MG/50 ML VIAL As Ordered ONE (12:17)
[2021-05-19] MEDS ORDERED: fentaNYL 100 MCG/2 ML INJECTION (J3010) As Ordered ONE (12:17)
[2021-05-19] MEDS ORDERED: LIDOCAINE 2% 100MG/5ML SDV (FOR ANES.) As Ordered ONE (12:17)
--- NOTE | 2021-05-19 12:31 | ROOR ---
Patient Name: Elle Awan Procedure Date: 05/19/2021 12:10 PM Date of : 1945 Age: 75 Room: [facility] Gender: Female Note Status: Finalized Procedure: Egd + Apc Indications: Watermelon stomach (GAVE syndrome) Providers: Nirav Villasenor MD Referring MD: Nati MERLOS MD Requesting Provider: Medicines: Monitored Anesthesia Care Complications: No immediate complications. Procedure: Pre-Anesthesia Assessment: - The heart rate, respiratory rate, oxygen saturations, blood pressure, adequacy of pulmonary ventilation, and response to care were monitored throughout the procedure. The Endoscope was introduced through the mouth, and advanced to the second part of duodenum. The upper GI endoscopy was accomplished without difficulty. The patient tolerated the procedure well. Findings: The Z-line was regular and was found 40 cm from the incisors. Moderate gastric antral vascular ectasia was present in the gastric antrum. Coagulation for hemostasis using argon plasma at 0.8 liters/minute and 35 hall was successful. The exam of the duodenum was otherwise normal. Impression: - Z-line regular, 40 cm from the incisors. - Gastric antral vascular ectasia. Treated with argon plasma coagulation (APC). - No specimens collected. - The examination was otherwise normal. Recommendation: - Patient has a contact number available for emergencies. The signs and symptoms of potential delayed complications were discussed with the patient. Return to normal activities tomorrow. Written discharge instructions were provided to the patient. - Resume previous diet. - Discharge patient to home. - Follow an antireflux regimen. - Continue present medications. - Return to referring physician. - The findings and recommendations were discussed with the patient's family. Procedure Code(s): --- Professional --- 66048, Esophagogastroduodenoscopy, flexible, transoral; with control of bleeding, any method Diagnosis Code(s): --- Professional --- K31.819, Angiodysplasia of stomach and duodenum without bleeding CPT copyright 2019 [employer]. All rights reserved. The codes documented in this report are preliminary and upon library sales consultant review may be revised to meet current compliance requirements. Nirav Villasenor MD Nirav Villasenor MD 05/19/2021 12:31:03 PM Electronically signed by Nirav Villasenor MD Number of Addenda: 0 Note Initiated On: 05/19/2021 12:10 PM Estimated Blood Loss: Estimated blood loss: none.
[2021-05-19 13:10] VITALS: BP 180/80
== END 2021-05-19 13:25 | disposition home or self-care (01) ==
LOC: M OPP 10:36
PROVIDERS: ATTEND Internal Medicine Gastroenterology
DX: K31.811 Angiodysplasia of stomach and duodenum with bleeding (principal); D64.9 Anemia, unspecified; Z79.899 Other long term (current) drug therapy; Z88.2 Allergy status to sulfonamides; Z88.6 Allergy status to analgesic agent
CPT/HCPCS: 43255; J3010

== ENCOUNTER → 2021-05-22 | Outpatient (CLI) | payer MEDICARE, OTHER ==
[~2021-05-22] MED LIST changes: -NS 1,000 ML IV ONE
--- NOTE | 2021-05-29 09:06 | SLEEPHOME ---
DATE: 05/22/2021 ORDERED BY: Ervin Granda MD Diagnostic home sleep testing was performed due to concern for the obstructive sleep apnea syndrome in this patient with a history of cor pulmonale. For testing, a nocturnal T3 respiratory monitoring device was used. Continuous record was made of pulse, oxygen saturation, air flow, chest and abdominal strain, and body position. Nine hours and 59 minutes of data were reviewed. There were 8 hours and 12 minutes marked as time in bed. During the interval marked time in bed, there were 99 respiratory events identified of 10 seconds in duration or greater for a respiratory event index of 12.1. The events were obstructive. Baseline pulse rate and saturation were unable to be reported as the probes became dislodged. Testing was performed in both the supine and non-supine positions. IMPRESSION: Abnormal home sleep testing with repetitive respiratory events and a respiratory event index of 12.1 is consistent with the obstructive sleep apnea syndrome. RECOMMENDATION: The patient should be encouraged to undergo a formal sleep evaluation.
== END ==
LOC: M SLEEP HO 11:30
PROVIDERS: ATTEND Internal Medicine Cardiovascular Disease
DX: I27.81 Cor pulmonale (chronic) (principal); G47.33 Obstructive sleep apnea (adult) (pediatric)

== ENCOUNTER → 2021-05-25 | Outpatient (CLI) | payer MEDICARE, OTHER ==
[2021-05-25 10:04] LABS: BASO # 0.1 10^3/uL (0.0-0.2); BASO % 0.9 % (0.0-1.0); EOS # 0.2 10^3/uL (0.0-0.5); EOS % 3.2 % (0.0-3.0); LYMPH # 0.9 10^3/uL (1.5-5.0); LYMPH % 12.1 % (24.0-44.0); MEAN CORPUSCULAR HEMOGLOBIN 28.7 pg (27.0-33.0); MEAN CORPUSCULAR HGB CONC 32.5 g/dl (32.0-36.5); MEAN CORPUSCULAR VOLUME 88.3 fl (80.0-96.0); NEUTROPHILS # 5.3 10^3/uL (1.5-8.5); PLATELET COUNT, AUTOMATED 316 10^3/uL (150-450); RED BLOOD COUNT 4.53 10^6/uL (4.00-5.40); WHITE BLOOD COUNT 7.5 10^3/uL (4.0-10.0)
--- NOTE | 2021-05-25 10:14 | REP ---
INDICATION: COUGH PT HAVING LABS FIRST COMPARISON: 12/20/2020 TECHNIQUE: PA and lateral. FINDINGS: Left perihilar and lower lobe airspace disease with small left pleural effusion. Cardiac silhouette is normal. Right hemithorax appears clear. IMPRESSION: Left perihilar opacities and small left pleural effusion warrant follow-up. <Electronically signed by Erik Joya > 05/25/21 1010
== END ==
LOC: M LAB 09:33
PROVIDERS: ATTEND Internal Medicine Gastroenterology
DX: R05 Cough (principal); R91.8 Other nonspecific abnormal finding of lung field; J90 Pleural effusion, not elsewhere classified

== ENCOUNTER → 2021-09-08 | Outpatient (REF) | payer MEDICARE, OTHER ==
[~2021-09-08] MED LIST changes: +ALBU83IN; -CITA40TA4 PO; +CITA40TA7 PO; -FLUO10CA16 PO; +FLUO10CA18 PO; +LOSA50TA28 PO; -LOSA50TA88 PO; -OMEP-221 PO; +OMEP40CA5 PO; +ONDA-84 PO; -ONDA8TAB10 PO
== END ==
LOC: M LAB REF 16:17
PROVIDERS: ATTEND Internal Medicine
DX: N39.0 Urinary tract infection, site not specified (principal)

== ENCOUNTER → 2022-02-10 | Outpatient (CLI) | payer MEDICARE, OTHER | LOC: M SLEEP 20:00 | PROVIDERS: ATTEND Nurse Practitioner Adult Health | DX: G47.33 Obstructive sleep apnea (adult) (pediatric) (principal) ==

== ENCOUNTER → 2022-02-22 | Outpatient (REF) | payer MEDICARE, OTHER | LOC: M LAB REF 16:23 | PROVIDERS: ATTEND Internal Medicine | DX: R06.00 Dyspnea, unspecified (principal) ==

== ENCOUNTER → 2022-03-01 | Outpatient (CLI) | payer MEDICARE, OTHER ==
[~2022-03-01] MED LIST changes: +ALBU2.5V10; -ALBU83IN; +GASTROGRAFIN SOLUTION 30ML (Q9963) As Ordered ONE; +ISOVUE-370 76% 100ML VIAL As Ordered ONE
== END ==
LOC: M RAD 13:18
PROVIDERS: ATTEND Internal Medicine
DX: R10.9 Unspecified abdominal pain (principal); R63.4 Abnormal weight loss
CPT/HCPCS: 74178; Q9963; Q9967

== ENCOUNTER → 2022-04-10 | Outpatient (CLI) | payer MEDICARE, OTHER ==
[~2022-04-10] MED LIST changes: -GASTROGRAFIN SOLUTION 30ML (Q9963) As Ordered ONE; -ISOVUE-370 76% 100ML VIAL As Ordered ONE
== END ==
LOC: M RAD 09:29 → M PLAIMG 09:29
PROVIDERS: ATTEND Internal Medicine
DX: D16.4 Benign neoplasm of bones of skull and face (principal)